=== PATIENT | male | born 1990 | race African-American/Black ===

== ENCOUNTER 2020-12-20 23:17 | Emergency (ER) | payer MEDICAID ==
[~2020-12-20] VITALS: Ht 182.9 cm; Wt 102.1 kg
--- NOTE | 2020-12-20 23:19 | NUR ---
PT BIBEMS AND [employer] FROM STREET C/O SI WITH PLAN TO RUN INTO TRAFFIC AND HI. PLACED IN BED 14 ON MONITOR AND PULSE OX. VSS. NO ACUTE DISTRESS NOTED. AWAITING ER MD FOR EVAL AND ORDERS.
[2020-12-20] MEDS ORDERED: OLANZAPINE 10 MG VIAL IM ONE (23:39)
[2020-12-20 23:46] LABS: BASOPHILS # (AUTO) 0.1 /CMM (0.0-0.2); BASOPHILS % (AUTO) 0.9 % (0.0-2.0); EOSINOPHILS % (AUTO) 0.5 % (0.0-6.0); HEMATOCRIT 44 % (39-51); HEMOGLOBIN 14.7 g/dL (13.5-17.5); LYMPHOCYTES # (AUTO) 2.3 /CMM (0.8-4.8); LYMPHOCYTES % (AUTO) 31.4 % (20.0-44.0); MEAN CORPUSCULAR HGB CONC 34 g/dl (31.0-36.0); MEAN CORPUSCULAR VOLUME 86 fL (80-96); MONOCYTES # (AUTO) 0.7 /CMM (0.1-1.30); MONOCYTES % (AUTO) 9.3 % (2.0-12.0); NEUTROPHILS # (AUTO) 4.2 /CMM (1.8-8.9); NEUTROPHILS % (AUTO) 57.9 % (43.0-81.0); PLATELET COUNT (AUTO) 321 /CMM (150-450); RED BLOOD CELL COUNT(AUTO) 5.09 MIL/uL (4.5-6.0); WHITE BLOOD COUNT (AUTO) 7.3 K/uL (4.3-11.0)
[2020-12-20 23:55] LABS: CALCIUM, SERUM 9.6 mg/dL (8.5-10.1); CARBON DIOXIDE 27 mmol/L (21-32); CHLORIDE 104 mmol/L (98-107); CREATININE 1.1 mg/dL (0.6-1.3); GLUCOSE 111 mg/dL (74-106); SODIUM SERUM 140 mmol/L (136-145); UREA NITROGEN, BLOOD 9 mg/dL (7-18)
[2020-12-21] LABS: ALANINE AMINOTRANSFERASE 25 U/L (12-78); ALBUMIN 4.4 g/dL (3.4-5.0); ALCOHOL, BLOOD < 3 mg/dL (0-0); ALKALINE PHOSPHATASE 84 U/L (46-116); ASPARTATE AMINOTRANSFERASE 21 U/L (15-37); BILIRUBIN,DIRECT 0.1 mg/dL (0.0-0.2); BILIRUBIN,TOTAL 0.3 mg/dL (0.2-1.0); TOTAL PROTEIN, SERUM 8.2 g/dL (6.4-8.2)
[2020-12-21] MEDS ORDERED: OLANZAPINE 10 MG VIAL IM ONE
[2020-12-21 00:01] LABS: ACETAMINOPHEN 0 ug/ml (10-30)
[2020-12-21 00:19] LABS: BILIRUBIN,URINE Negative (NEGATIVE); COLOR,URINE YELLOW (YELLOW); LEUKOCYTE ESTERASE ,URINE Negative (NEGATIVE); NITRITE, URINE Negative (NEGATIVE); PH,URINE 5.5 (5.0-8.0); PROTEIN,URINE Negative (NEGATIVE); UGLUCOSE Negative (NEGATIVE); UROBILINOGEN,URINE 0.2 EU/dL (0.2)
--- NOTE | 2020-12-21 01:33 | NUR ---
FACESHEET AND CLINICALS FAXED TO [facility] FOR VOLUNTARY PSYCH ADMISSION.
--- NOTE | 2020-12-21 03:41 | NUR ---
PT ACCEPTED TO [facility] BY DR. CALDERON. # FOR REPORT EXT [id number]. ROOM # WILL BE PROVIDED DURING NURSE TO NURSE REPORT.
--- NOTE | 2020-12-21 05:49 | NUR ---
[facility] CALLED FOR TRANSPORT. TRIP# [id number]
--- NOTE | 2020-12-21 06:06 | NUR ---
[facility] ([facility]) ETA 1500
--- NOTE | 2020-12-21 08:24 | NUR ---
CALLED TRANSPORT [facility] 60 MINS PER [place].
--- NOTE | 2020-12-21 09:12 | NUR ---
ASSESSED PT ON BED ASLEEP EASILY AROUSABLE, NOT IN RESPIRATORY DISTRESS, V/S STABLE, KEPT RESTED AND COMFORTABLE. WILL CONTINUE TO MONITOR.
--- NOTE | 2020-12-21 09:34 | NUR ---
REPORT GIVEN TO KIERAN PATRICK OF [facility].
[2020-12-21 09:36] VITALS: BP 109/62
== END 2020-12-21 09:38 ==
LOC: ER 23:20
DX: R45.851 Suicidal ideations (principal); F19.10 Other psychoactive substance abuse, uncomplicated; F17.200 Nicotine dependence, unspecified, uncomplicated; Z20.822 Contact with and (suspected) exposure to COVID-19
CPT/HCPCS: 36415; 80048; 80076; 80143; 80307; 80320; 81003; 85025; 87426; 96372; 99285; C9803; J3490; G0480

== ENCOUNTER 2021-01-24 14:59 | Emergency (ER) | payer MEDICAID ==
[~2021-01-24] VITALS: Ht 185.4 cm; Wt 104.3 kg
[2021-01-24 16:28] LABS: BILIRUBIN,URINE Negative (NEGATIVE); COLOR,URINE YELLOW (YELLOW); LEUKOCYTE ESTERASE ,URINE Negative (NEGATIVE); NITRITE, URINE Negative (NEGATIVE); PROTEIN,URINE Negative (NEGATIVE); UGLUCOSE Negative (NEGATIVE); UROBILINOGEN,URINE 0.2 EU/dL (0.2)
[2021-01-24 16:40] LABS: CALCIUM, SERUM 9.2 mg/dL (8.5-10.1); CARBON DIOXIDE 29 mmol/L (21-32); CHLORIDE 102 mmol/L (98-107); GLUCOSE 97 mg/dL (74-106); POTASSIUM 4.1 mmol/L (3.5-5.1); SODIUM SERUM 138 mmol/L (136-145); UREA NITROGEN, BLOOD 23 mg/dL (7-18)
[2021-01-24 16:42] LABS: BASOPHILS % (AUTO) 0.6 % (0.0-2.0); EOSINOPHILS % (AUTO) 1.5 % (0.0-6.0); HEMATOCRIT 44 % (39-51); HEMOGLOBIN 14.7 g/dL (13.5-17.5); LYMPHOCYTES # (AUTO) 2.5 K/uL (0.8-4.8); LYMPHOCYTES % (AUTO) 35.5 % (20.0-44.0); MEAN CORPUSCULAR HGB CONC 34 g/dl (31.0-36.0); MEAN CORPUSCULAR VOLUME 86 fL (80-96); MONOCYTES # (AUTO) 0.6 K/uL (0.1-1.30); MONOCYTES % (AUTO) 7.9 % (2.0-12.0); NEUTROPHILS # (AUTO) 3.9 K/uL (1.8-8.9); NEUTROPHILS % (AUTO) 54.5 % (43.0-81.0); PLATELET COUNT (AUTO) 360 K/uL (150-450); RED BLOOD CELL COUNT(AUTO) 5.09 MIL/uL (4.5-6.0); WHITE BLOOD COUNT (AUTO) 7.1 K/uL (4.3-11.0)
[2021-01-24 16:46] LABS: ACETAMINOPHEN < 10 ug/ml (10-30); ALANINE AMINOTRANSFERASE 29 U/L (12-78); ALCOHOL, BLOOD < 2 mg/dL (0-0); ALKALINE PHOSPHATASE 77 U/L (46-116); ASPARTATE AMINOTRANSFERASE 20 U/L (15-37); BILIRUBIN,DIRECT 0.1 mg/dL (0.0-0.2); BILIRUBIN,TOTAL 0.3 mg/dL (0.2-1.0)
--- NOTE | 2021-01-24 19:35 | NUR ---
covid swab sent
--- NOTE | 2021-01-25 05:00 | NUR ---
SPOKE TO ART, PER ART, PATIENT IS ON A DO NOT ADMIT LIST
--- NOTE | 2021-01-25 05:45 | NUR ---
PATIENT CALM AND COOPERATIVE, PT DENIES ANY SI/HI, INFORMED PATIENT THAT [facility] CANNOT ACCEPT HIM, OFFERED HOMELESS RESOURCES, PT REQUESTING FOR HOT MEAL AT THIS TIME
--- NOTE | 2021-01-25 06:23 | NUR ---
PT REFUSES TO LEAVE. CALLED [facility] TEAM TO EVAL PATIENT
--- NOTE | 2021-01-25 07:32 | NUR ---
ALICIA Harley in to see patient. Cleared for discharge. Patient discharged to previous Living condition in stable condition. Refusing assisted and resources Written and verbal after care instructions given. Patient left [facility]CI and left.
[2021-01-25 07:34] VITALS: BP 132/79
== END 2021-01-25 07:44 | disposition home or self-care (01) ==
LOC: ER 15:01
DX: R45.851 Suicidal ideations (principal); Z59.0 Homelessness; F31.9 Bipolar disorder, unspecified; F20.9 Schizophrenia, unspecified; Z20.822 Contact with and (suspected) exposure to COVID-19; F19.10 Other psychoactive substance abuse, uncomplicated
CPT/HCPCS: 36415; 80048; 80076; 80143; 80307; 80320; 81003; 85025; 87426; 99285; C9803; G0480